=== PATIENT | male | born 1970 | race African-American/Black ===

== ENCOUNTER 2017-10-02 12:30 | Emergency (ER) | payer OTHER ==
[~2017-10-02] VITALS: Ht 172.7 cm; Wt 113.4 kg
[2017-10-02] MEDS ORDERED: Ketorolac 60mg Inj IM ONE (13:15)
[2017-10-02 13:26] VITALS: BP 168/94
[2017-10-02] MEDS ORDERED: IBUPROFEN600 MG ORAL (13:44)
[2017-10-02] MEDS ORDERED: ROBAXIN-750750 MG PO (13:44)
[2017-10-02 13:52] VITALS: BP 168/94
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
== END 2017-10-02 13:53 | disposition home or self-care (01) ==
LOC: EMR 13:45
DX: T14.8XXA Other injury of unspecified body region, initial encounter (principal); Z86.73 Personal history of transient ischemic attack (TIA), and cerebral infarction without residual deficits; I10 Essential (primary) hypertension; M54.2 Cervicalgia; M54.9 Dorsalgia, unspecified; V43.52XA Car driver injured in collision with other type car in traffic accident, initial encounter; Y92.410 Unspecified street and highway as the place of occurrence of the external cause
CPT/HCPCS: 96372; 99284